=== PATIENT | male | born 1990 | race Two or more races ===

== ENCOUNTER 2022-06-28 11:37 | Emergency (ER) | payer OTHER, SELFPAY ==
--- NOTE | ~2022-06-28 | XR_ITS ---
EXAMINATION: XR CHEST CLINICAL INFORMATION: Chest pain COMPARISON: None TECHNIQUE: 2 views of the chest were obtained. FINDINGS: No significant abnormality is noted involving the heart, lungs, mediastinum, bony thorax or soft tissues. XR/XR chest 2V IMPRESSION: No acute disease.
[2022-06-28 12:07] VITALS: PULSE 81; RESP 18; TEMP 36.8; O2SAT 98; BMI 34.0
--- NOTE | 2022-06-28 12:08 | ED.CHESTPAIN ---
HPI - Chest Pain General Chief Complaint: Chest Pain <Silvia Alfredo NP - Last Filed: 06/28/22 12:11> Stated Complaint: CP, sob, HBP <Silvia Alfredo NP - Last Filed: 06/28/22 12:11> Time Seen by Provider: 06/28/22 13:48 <Silvia Alfredo NP - Last Filed: 06/28/22 12:11> Source: patient and family <Shanel Kelley NP - Last Filed: 06/28/22 15:36> Mode of arrival: ambulatory <Shanel Kelley NP - Last Filed: 06/28/22 15:36> Limitations: no limitations <Shanel Kelley NP - Last Filed: 06/28/22 15:36> History of Present Illness HPI narrative: 31-year-old male patient with no significant past medical history presents to the emergency department today with complaints of chest pain, shortness breath, and dizziness that started yesterday around 6:00 p.m. after playing with his children. He states symptoms began suddenly with a tightness and throbbing sensation in his left chest. He denies any sensation of pain into his left arm or jaw. He denies any abdominal pain, diarrhea, constipation, fever, chills, headache, changes in vision. He denies any recent illness or known sick contacts. <Shanel Kelley NP - Last Filed: 06/28/22 15:36> MD complaint: chest pain <Shanel Kelley NP - Last Filed: 06/28/22 15:36> Onset (ago): day(s) (1) <Shanel Kelley NP - Last Filed: 06/28/22 15:36> Timing of current episode: constant <Shanel Kelley NP - Last Filed: 06/28/22 15:36> Prior episodes: No <Shanel Kelley NP - Last Filed: 06/28/22 15:36> Onset: during exertion <Shanel Kelley NP - Last Filed: 06/28/22 15:36> Pain location: left chest <Shanel Kelley NP - Last Filed: 06/28/22 15:36> Pain radiation: none <Shanel Kelley NP - Last Filed: 06/28/22 15:36> Severity: mild <Shanel Kelley NP - Last Filed: 06/28/22 15:36> Quality: tightness <Shanel Kelley NP - Last Filed: 06/28/22 15:36> Relieving factors: nothing <Shanel Kelley NP - Last Filed: 06/28/22 15:36> Exacerbating factors: exertion <Shanel Kelley NP - Last Filed: 06/28/22 15:36> Treatment prior to arrival: none <Shanel Kelley NP - Last Filed: 06/28/22 15:36> Risk Factors Coronary artery disease risk factors: none <Shanel Kelley NP - Last Filed: 06/28/22 15:36> Thoracic aortic dissection risk factors: none <Shanel Kelley NP - Last Filed: 06/28/22 15:36> Related Data Home Medications: Previous Rx's Medication Instructions Recorded albuterol sulfate 90 mcg/actuation 2 inh inhalation Q6H PRN shortness 06/28/22 breath activated powder of breath #1 ea inhaler,sensor prednisone 20 mg tablet 40 mg PO DAILY #5 tabs 06/28/22 <Silvia Alfredo NP - Last Filed: 06/28/22 12:11> Allergies/Adverse Reactions: Allergies Allergy/AdvReac Type Severity Reaction Status Date / Time No Known Allergies Allergy Unverified 03/17/20 16:09 <Silvia Alfredo NP - Last Filed: 06/28/22 12:11> Review of Systems Review of Systems: In addition to documented HPI above, the additional ROS was obtained: Constitutional: No Weight loss, No Fever, No Chills ENT/Mouth: No Ear Pain, No Nasal Congestion, No Sinus Pain, No Hoarseness, No sore throat, No Rhinorrhea, No Swallowing Difficulty Cardiovascular: per HPI Respiratory: No Cough, No Sputum, No Wheezing Gastrointestinal: No Nausea, No Vomiting, No Diarrhea, No Constipation, No Abdominal pain Genitourinary: No Dysuria, No Urinary Frequency, No Hematuria, No Urinary Incontinence/retention, No Urgency, No Flank Pain Musculoskeletal: No joint pain, No Myalgias, No Joint Swelling Skin: No Skin Lesions, No rash Neuro: No Weakness, No Numbness, No Paresthesias <Shanel Kelley NP - Last Filed: 06/28/22 15:36> Yes all other systems are reviewed and are negative <Shanel Kelley NP - Last Filed: 06/28/22 15:36> [facility] Social History Social History: Social History Advance Directives: No Advance Directives Information Provided: Yes <Silvia Alfredo NP - Last Filed: 06/28/22 12:11> Physical Exam Vital Signs: Vital Signs: Last Vital Signs Temp 98.2 F 06/28/22 12:07 Pulse 65 06/28/22 14:34 Resp 15 06/28/22 14:34 Pulse Ox 98 06/28/22 12:07 O2 Del Method 06/28/22 12:07 BMI result Body Mass Index 34.0 <Silvia Alfredo NP - Last Filed: 06/28/22 12:11> Vital Signs: Last Vital Signs Temp 98.2 F 06/28/22 12:07 Pulse 65 06/28/22 14:34 Resp 15 06/28/22 14:34 Pulse Ox 98 06/28/22 12:07 O2 Del Method 06/28/22 12:07 BMI result Body Mass Index 34.0 <Shanel Kelley NP - Last Filed: 06/28/22 15:36> Course Course Course Narrative: This is rapid medical exam. Deferred additional HPI, ROS, PE to primary provider. 31 yo male healthy here with complaints of chest pain, shortness of breath, dizziness since 6pm yesterday. Patient went to [facility] but was not seen by provider due to the long wait. Here with continued symptoms. Will check EKG, CXR, labs, viral testing. VSS. <Silvia Alfredo NP - Last Filed: 06/28/22 12:11> This is rapid medical exam. Deferred additional HPI, ROS, PE to primary provider. 31 yo male healthy here with complaints of chest pain, shortness of breath, dizziness since 6pm yesterday. Patient went to [facility] but was not seen by provider due to the long wait. Here with continued symptoms. Will check EKG, CXR, labs, viral testing. VSS. 1415: Blood work unremarkable. Troponin negative. CXR negative. EKG NSR. LS diminished. Albuterol neb treatment ordered. 1515: Pt reports ease in breathing. LS improved <Shanel Kelley NP - Last Filed: 06/28/22 15:36> Medications Administered Discontinued Medications Generic Name Dose Route Start Last Admin Trade Name Freq PRN Reason Stop Dose Admin Albuterol Sulfate 2.5 mg/ 5 mg 06/28/22 14:12 06/28/22 14:30 Albuterol Sulfate 2.5 mg INHALE 06/28/22 14:13 5 mg ONCE ONE Administration <Silvia Alfredo FACE HARDENER - Last Filed: 06/28/22 12:11> Medications Administered Discontinued Medications Generic Name Dose Route Start Last Admin Trade Name Freq PRN Reason Stop Dose Admin Albuterol Sulfate 2.5 mg/ 5 mg 06/28/22 14:12 06/28/22 14:30 Albuterol Sulfate 2.5 mg INHALE 06/28/22 14:13 5 mg ONCE ONE Administration <Shanel Kelley NP - Last Filed: 06/28/22 15:36> Medical Decision Making Medical Decision Making MDM Narrative: 31-year-old male patient with no significant past medical history presents to the emergency department today with complaints of chest pain, shortness breath, and dizziness that started yesterday around 6:00 p.m. after playing with his children. He states symptoms began suddenly with a tightness and throbbing sensation in his left chest. Blood work unremarkable. Chest xray negative for infection. Albuterol nebulizer treatment given with improvement in lung sounds. On repeat exam patient states he had been working with ammonia yesterday in believes he may have breathed in the chemical while at work. He denies wearing any type of mask a respirator over working with chemicals. Plan to discharge patient home with Education on chemical exposure and lung function. Albuterol inhaler and short course of prednisone ordered. HPI, PE, diagnostic, and plan discussed with patient and family, to questions at this time. Educated to return to the emergency department with worsening shortness of breath, chest pain, worsening headache, changes in vision, or any other concerning emergent symptoms. Recommended follow-up with his primary care provider for further treatment and management. <Shanel Kelley NP - Last Filed: 06/28/22 15:36> Lab Data Result Diagrams: : 06/28/22 12:43 06/28/22 12:43 <Silvia Alfredo NP - Last Filed: 06/28/22 12:11> Labs: Lab Results 06/28/22 06/28/22 06/28/22 Range/Units 12:43 12:43 12:43 WBC 10.6 (4.8-10.8) X10*3/uL RBC 4.97 (4.60-5.80) X10*6/uL Hgb 12.9 L (14.0-18.0) g/dl Hct 40.5 L (42.0-52.0) % MCV 81.5 (80.0-98.0) fL MCH 26.0 L (27.0-33.0) pg MCHC 31.9 (31.0-36.0) g/dl RDW 14.2 (11.0-16.0) % Plt Count 382 (160-400) X10*3/uL MPV 10.5 (9.4-12.4) fL Immature Gran % (Auto) 0.2 (0.0-0.4) % Neut % (Auto) 63.7 (45-73) % Lymph % (Auto) 25.3 (20-40) % Craig % (Auto) 7.5 (2-11) % Eos % (Auto) 2.9 (0-4) % Baso % (Auto) 0.4 (0-2) % Lymph # (Auto) 2.7 (1.2-4.9) X10*3/uL Craig # (Auto) 0.8 (0.1-1.2) X10*3/uL Eos # (Auto) 0.3 (0.0-0.4) X10*3/uL Baso # (Auto) 0.0 (0.0-0.2) X10*3/uL Abs Immat Gran (auto) 0.02 (0.00-0.03) X10*3/uL Absolute Neuts (auto) 6.8 (2.0-8.3) x10*3/uL Absolute Nucleated RBC 0.000 (0.0-0.012) X10*3/uL Nucleated RBC % (auto) 0.0 (0.0-0.2) /100WBC Sodium 141 (135-145) mmol/L Potassium 4.8 (3.3-5.1) mmol/L Chloride 106 (96-108) mmol/L Carbon Dioxide 28 (22-29) mmol/L Anion Gap 12 (12-20) BUN 11 (9-16) mg/dL Creatinine 0.84 (0.5-1.4) mg/dL Estim Creat Clear Calc 164.1 Estimated GFR > 60 Random Glucose 93 (60-115) mg/dL Calcium 9.5 (8.4-10.2) mg/dL Total Bilirubin 0.3 (0.0-1.0) mg/dL Direct Bilirubin < 0.2 (0.0-0.5) mg/dL AST 21 (5-37) U/L ALT 25 (0-40) U/L Alkaline Phosphatase 60 (39-117) U/L Troponin I High Sens (<3.5-35.0) ng/L Total Protein 7.4 (6.5-8.0) g/dL Albumin 4.2 (3.5-5.0) g/dL Influenza Type A (PCR) NEGATIVE (Negative) Influenza Type B (PCR) NEGATIVE (Negative) RSV RNA Qual (PCR) NEGATIVE (Negative) SARS-CoV-2 RNA (RT-PCR) NEGATIVE (Negative) 06/28/22 Range/Units 12:43 WBC (4.8-10.8) X10*3/uL RBC (4.60-5.80) X10*6/uL Hgb (14.0-18.0) g/dl Hct (42.0-52.0) % MCV (80.0-98.0) fL MCH (27.0-33.0) pg MCHC (31.0-36.0) g/dl RDW (11.0-16.0) % Plt Count (160-400) X10*3/uL MPV (9.4-12.4) fL Immature Gran % (Auto) (0.0-0.4) % Neut % (Auto) (45-73) % Lymph % (Auto) (20-40) % Craig % (Auto) (2-11) % Eos % (Auto) (0-4) % Baso % (Auto) (0-2) % Lymph # (Auto) (1.2-4.9) X10*3/uL Craig # (Auto) (0.1-1.2) X10*3/uL Eos # (Auto) (0.0-0.4) X10*3/uL Baso # (Auto) (0.0-0.2) X10*3/uL Abs Immat Gran (auto) (0.00-0.03) X10*3/uL Absolute Neuts (auto) (2.0-8.3) x10*3/uL Absolute Nucleated RBC (0.0-0.012) X10*3/uL Nucleated RBC % (auto) (0.0-0.2) /100WBC Sodium (135-145) mmol/L Potassium (3.3-5.1) mmol/L Chloride (96-108) mmol/L Carbon Dioxide (22-29) mmol/L Anion Gap (12-20) BUN (9-16) mg/dL Creatinine (0.5-1.4) mg/dL Estim Creat Clear Calc Estimated GFR Random Glucose (60-115) mg/dL Calcium (8.4-10.2) mg/dL Total Bilirubin (0.0-1.0) mg/dL Direct Bilirubin (0.0-0.5) mg/dL AST (5-37) U/L ALT (0-40) U/L Alkaline Phosphatase (39-117) U/L Troponin I High Sens < 3.5 (<3.5-35.0) ng/L Total Protein (6.5-8.0) g/dL Albumin (3.5-5.0) g/dL Influenza Type A (PCR) (Negative) Influenza Type B (PCR) (Negative) RSV RNA Qual (PCR) (Negative) SARS-CoV-2 RNA (RT-PCR) (Negative) <Silvia Alfredo NP - Last Filed: 06/28/22 12:11> Lab Results 06/28/22 06/28/22 06/28/22 Range/Units 12:43 12:43 12:43 WBC 10.6 (4.8-10.8) X10*3/uL RBC 4.97 (4.60-5.80) X10*6/uL Hgb 12.9 L (14.0-18.0) g/dl Hct 40.5 L (42.0-52.0) % MCV 81.5 (80.0-98.0) fL MCH 26.0 L (27.0-33.0) pg MCHC 31.9 (31.0-36.0) g/dl RDW 14.2 (11.0-16.0) % Plt Count 382 (160-400) X10*3/uL MPV 10.5 (9.4-12.4) fL Immature Gran % (Auto) 0.2 (0.0-0.4) % Neut % (Auto) 63.7 (45-73) % Lymph % (Auto) 25.3 (20-40) % Craig % (Auto) 7.5 (2-11) % Eos % (Auto) 2.9 (0-4) % Baso % (Auto) 0.4 (0-2) % Lymph # (Auto) 2.7 (1.2-4.9) X10*3/uL Craig # (Auto) 0.8 (0.1-1.2) X10*3/uL Eos # (Auto) 0.3 (0.0-0.4) X10*3/uL Baso # (Auto) 0.0 (0.0-0.2) X10*3/uL Abs Immat Gran (auto) 0.02 (0.00-0.03) X10*3/uL Absolute Neuts (auto) 6.8 (2.0-8.3) x10*3/uL Absolute Nucleated RBC 0.000 (0.0-0.012) X10*3/uL Nucleated RBC % (auto) 0.0 (0.0-0.2) /100WBC Sodium 141 (135-145) mmol/L Potassium 4.8 (3.3-5.1) mmol/L Chloride 106 (96-108) mmol/L Carbon Dioxide 28 (22-29) mmol/L Anion Gap 12 (12-20) BUN 11 (9-16) mg/dL Creatinine 0.84 (0.5-1.4) mg/dL Estim Creat Clear Calc 164.1 Estimated GFR > 60 Random Glucose 93 (60-115) mg/dL Calcium 9.5 (8.4-10.2) mg/dL Total Bilirubin 0.3 (0.0-1.0) mg/dL Direct Bilirubin < 0.2 (0.0-0.5) mg/dL AST 21 (5-37) U/L ALT 25 (0-40) U/L Alkaline Phosphatase 60 (39-117) U/L Troponin I High Sens (<3.5-35.0) ng/L Total Protein 7.4 (6.5-8.0) g/dL Albumin 4.2 (3.5-5.0) g/dL Influenza Type A (PCR) NEGATIVE (Negative) Influenza Type B (PCR) NEGATIVE (Negative) RSV RNA Qual (PCR) NEGATIVE (Negative) SARS-CoV-2 RNA (RT-PCR) NEGATIVE (Negative) 06/28/22 Range/Units 12:43 WBC (4.8-10.8) X10*3/uL RBC (4.60-5.80) X10*6/uL Hgb (14.0-18.0) g/dl Hct (42.0-52.0) % MCV (80.0-98.0) fL MCH (27.0-33.0) pg MCHC (31.0-36.0) g/dl RDW (11.0-16.0) % Plt Count (160-400) X10*3/uL MPV (9.4-12.4) fL Immature Gran % (Auto) (0.0-0.4) % Neut % (Auto) (45-73) % Lymph % (Auto) (20-40) % Craig % (Auto) (2-11) % Eos % (Auto) (0-4) % Baso % (Auto) (0-2) % Lymph # (Auto) (1.2-4.9) X10*3/uL Craig # (Auto) (0.1-1.2) X10*3/uL Eos # (Auto) (0.0-0.4) X10*3/uL Baso # (Auto) (0.0-0.2) X10*3/uL Abs Immat Gran (auto) (0.00-0.03) X10*3/uL Absolute Neuts (auto) (2.0-8.3) x10*3/uL Absolute Nucleated RBC (0.0-0.012) X10*3/uL Nucleated RBC % (auto) (0.0-0.2) /100WBC Sodium (135-145) mmol/L Potassium (3.3-5.1) mmol/L Chloride (96-108) mmol/L Carbon Dioxide (22-29) mmol/L Anion Gap (12-20) BUN (9-16) mg/dL Creatinine (0.5-1.4) mg/dL Estim Creat Clear Calc Estimated GFR Random Glucose (60-115) mg/dL Calcium (8.4-10.2) mg/dL Total Bilirubin (0.0-1.0) mg/dL Direct Bilirubin (0.0-0.5) mg/dL AST (5-37) U/L ALT (0-40) U/L Alkaline Phosphatase (39-117) U/L Troponin I High Sens < 3.5 (<3.5-35.0) ng/L Total Protein (6.5-8.0) g/dL Albumin (3.5-5.0) g/dL Influenza Type A (PCR) (Negative) Influenza Type B (PCR) (Negative) RSV RNA Qual (PCR) (Negative) SARS-CoV-2 RNA (RT-PCR) (Negative) <Shanel Kelley NP - Last Filed: 06/28/22 15:36> Discharge Plan Discharge Clinical Impression: Reactive airway disease <Silvia Alfredo NP - Last Filed: 06/28/22 12:11> Patient Disposition: Home, Self-Care <Silvia Alfredo NP - Last Filed: 06/28/22 12:11> Instructions: Asthma (ED), How to Use a Metered-Dose Inhaler (ED), How Your Lungs Work (ED) <Silvia Alfredo NP - Last Filed: 06/28/22 12:11> Prescriptions: New prednisone 20 mg tablet 40 mg PO DAILY Qty: 5 0RF albuterol sulfate 90 mcg/actuation aero powdr breath act w/sensor 2 inh inhalation Q6H PRN (Reason: shortness of breath) Qty: 1 0RF <Silvia Alfredo NP - Last Filed: 06/28/22 12:11> Referrals: [facility] Family Medicine [Provider Group] [facility] Primary Care, Cheryl [Provider Group] [facility] Primary Care,Caroline [Provider Group] <Silvia Alfredo NP - Last Filed: 06/28/22 12:11> Stand Alone Forms: Work/School Release <Silvia Alfredo NP - Last Filed: 06/28/22 12:11> Print Language: Marshallese <Silvia Alfredo NP - Last Filed: 06/28/22 12:11>
--- NOTE | 2022-06-28 12:09 | ECG_ITS ---
Test Reason : cp Blood Pressure : / mmHG Vent. Rate : 074 BPM Atrial Rate : 074 BPM P-R Int : 134 ms QRS Dur : 098 ms QT Int : 376 ms P-R-T Axes : 033 039 020 degrees QTc Int : 417 ms Normal sinus rhythm Normal ECG No previous ECGs available Referred By: Silvia Alfredo Electronically Signed By:JEET BACK MD
[2022-06-28 12:48] LABS: MANUAL DIFF FLAG NO
[2022-06-28 12:49] LABS: Basophils Percent Auto 0.4 % (0-2); Eosinophils Absolute Auto 0.3 X10*3/uL (0.0-0.4); Eosinophils Percent Auto 2.9 % (0-4); Hematocrit 40.5 % (42.0-52.0); Hemoglobin 12.9 g/dl (14.0-18.0); Imm Gran Abs Auto 0.02 X10*3/uL (0.00-0.03); Imm Gran Pct Auto 0.2 % (0.0-0.4); Lymphocytes Absolute Auto 2.7 X10*3/uL (1.2-4.9); Lymphocytes Percent Auto 25.3 % (20-40); Mean Corpuscular HGB Conc 31.9 g/dl (31.0-36.0); Mean Corpuscular Volume 81.5 fL (80.0-98.0); Mean Platelet Volume 10.5 fL (9.4-12.4); Monocytes Absolute Auto 0.8 X10*3/uL (0.1-1.2); Monocytes Percent Auto 7.5 % (2-11); Neutrophils Absolute Auto 6.8 x10*3/uL (2.0-8.3); Neutrophils Percent Auto 63.7 % (45-73); Platelet Count 382 X10*3/uL (160-400); Red Blood Count 4.97 X10*6/uL (4.60-5.80); Red Cell Distribution Width 14.2 % (11.0-16.0); White Blood Count 10.6 X10*3/uL (4.8-10.8)
[2022-06-28 13:17] LABS: Potassium 4.8 mmol/L (3.3-5.1)
[2022-06-28 13:19] LABS: Alanine Aminotransferase 25 U/L (0-40); Albumin Level 4.2 g/dL (3.5-5.0); Alkaline Phosphatase 60 U/L (39-117); Anion Gap 12 (12-20); Aspartate Amino Transferase 21 U/L (5-37); Bilirubin Direct < 0.2 mg/dL (0.0-0.5); Bilirubin Total 0.3 mg/dL (0.0-1.0); Blood Urea Nitrogen 11 mg/dL (9-16); Calcium 9.5 mg/dL (8.4-10.2); Carbon Dioxide 28 mmol/L (22-29); Chloride 106 mmol/L (96-108); Creatinine Clr Calc Pharmacy 164.1; Estimated Glomerular Filt Rate > 60; Glucose Random 93 mg/dL (60-115); Sodium 141 mmol/L (135-145); Total Protein 7.4 g/dL (6.5-8.0)
[2022-06-28 13:26] LABS: Troponin-I High Sensitivity < 3.5 ng/L (<3.5-35.0)
[2022-06-28 13:31] LABS: Influenza A PCR NEGATIVE (Negative); Influenza B PCR NEGATIVE (Negative); Resp Syncy Virus RNA Qual PCR NEGATIVE (Negative); SARS COV2 PCR INHOUSE NEGATIVE (Negative)
[2022-06-28] MEDS: Albuterol Sulfate 2.5 MG, Albuterol Sulfate (0.083%) 2.5 MG 5 MG INHALE (14:30)
[2022-06-28 14:34] VITALS: PULSE 65; RESP 15; O2SAT 100
[2022-06-28 15:50] VITALS: BP 154/101; PULSE 84; RESP 19; TEMP 36.8; O2SAT 99
[2022-06-28 16:18] VITALS: BP 149/101
--- NOTE | 2023-07-11 13:57 | ED_ITS ---
HPI - Chest Pain General Chief Complaint: Chest Pain Stated Complaint: CP, sob, HBP Time Seen by Provider: 06/28/22 13:48 Source: patient and family Mode of arrival: ambulatory Limitations: no limitations History of Present Illness HPI narrative: 12 hour history of chest pain and shortness of breath with known sick contacts. Denies fever, chills, RODRIGUEZ, n/v/d. Pain location: left chest Quality: tightness Relieving factors: nothing Exacerbating factors: exertion Related Data Previous Rx's Medication Instructions Recorded albuterol sulfate 90 mcg/actuation 2 inh inhalation Q6H PRN shortness 06/28/22 breath activated powder of breath #1 ea inhaler,sensor prednisone 20 mg tablet 40 mg (2 x 20 mg) PO DAILY #5 tabs 06/28/22 Allergies Allergy/AdvReac Type Severity Reaction Status Date / Time No Known Allergies Allergy Unverified 03/17/20 16:09 Review of Systems 2 Review of Systems: Yes all other systems are reviewed and are negative PMFSH Social History Social History Advance Directives: No Advance Directives Information Provided: Yes Physical Exam 2 Vital Signs: Vital Signs: Last Vital Signs Temp 98.2 F 06/28/22 15:50 Pulse 84 06/28/22 15:50 Resp 19 06/28/22 15:50 BP 149/101 H 06/28/22 16:18 Pulse Ox 99 06/28/22 15:50 O2 Del Method Room Air 06/28/22 15:50 BMI result Body Mass Index 34.0 Const: General: cooperative, no acute distress, alert and awake Nutritional Appearance: well nourished Orientation/consciousness: patient oriented x3 Limitations: no limitations HEENT: Head: Yes normal to inspection and Yes atraumatic Ears: hearing grossly normal bilaterally and external ears normal General nose exam: Normal external nose present Face and sinus: Yes normal facial exam Mouth: Normal oral and palatal mucosa present Eyes: General: appearance normal, both eyes and all related structures A lignment and Position: alignment normal Periorbital: periorbital findings normal Eyelids: Yes eyelids normal Conjunctivae: conjunctivae normal S clerae: sclerae normal Pupils: Equal, round and reactive pupils present E OM: EOMs intact bilaterally Neck: Neck: Yes normal visual inspection and Yes full ROM Chest: Chest palpation & inspection: normal inspection of the chest Resp: Effort & Inspection: normal respiratory effort and able to speak in complete sentences Auscultation: clear to auscultation bilaterally Cardio: Rate: regular rate Rhythm: regular rhythm GI: Palpation (GI): Soft to palpation, not firm, nontender, no guarding and not rigid Auscultation: normal bowel sounds Skin: General skin exam: no rashes or lesions noted Neuro: General: patient oriented x3 Cranial nerves: Yes Equal, round and reactive pupils present Cognition (Neuro): normal cognition Gait exam (Neuro): Normal gait present Motor exam (neuro): 5/5 motor strength present throughout Sensory Exam: Normal double simultaneous stimulation for sensation Extrem: General: Yes normal to inspection, Yes full ROM and Yes capillary refill normal Psych: Appearance: grossly normal Mental Status: mental status grossly normal Speech and movement: Normal speech and movement present Affect: n ormal affect Attitude: cooperative Thought process: Normal thought process present Thought content: Normal thought content present Insight: Good insight present (Psych) Judgement: Good judgement present (Psych) Medications Administered Discontinued Medications Generic Name Dose Route Start Last Admin Trade Name Kongq PRN Reason Stop Dose Admin Albuterol Sulfate 2.5 mg/ 5 mg 06/28/22 14:12 06/28/22 14:30 Albuterol Sulfate 2.5 mg INHALE 06/28/22 14:13 5 mg ONCE ONE Administration Medical Decision Making Lab Data 06/28/22 12:43 06/28/22 12:43 Labs: Lab Results 06/28/22 Range/Units 12:43 WBC 10.6 (4.8-10.8) X10*3/uL RBC 4.97 (4.60-5.80) X10*6/uL Hgb 12.9 L (14.0-18.0) g/dl Hct 40.5 L (42.0-52.0) % MCV 81.5 (80.0-98.0) fL MCH 26.0 L (27.0-33.0) pg MCHC 31.9 (31.0-36.0) g/dl RDW 14.2 (11.0-16.0) % Plt Count 382 (160-400) X10*3/uL MPV 10.5 (9.4-12.4) fL Immature Gran % (Auto) 0.2 (0.0-0.4) % Neut % (Auto) 63.7 (45-73) % Lymph % (Auto) 25.3 (20-40) % Arthur % (Auto) 7.5 (2-11) % Eos % (Auto) 2.9 (0-4) % Baso % (Auto) 0.4 (0-2) % Lymph # (Auto) 2.7 (1.2-4.9) X10*3/uL Arthur # (Auto) 0.8 (0.1-1.2) X10*3/uL Eos # (Auto) 0.3 (0.0-0.4) X10*3/uL Baso # (Auto) 0.0 (0.0-0.2) X10*3/uL Abs Immat Gran (auto) 0.02 (0.00-0.03) X10*3/uL Absolute Neuts (auto) 6.8 (2.0-8.3) x10*3/uL Absolute Nucleated RBC 0.000 (0.0-0.012) X10*3/uL Nucleated RBC % (auto) 0.0 (0.0-0.2) /100WBC Sodium 141 (135-145) mmol/L Potassium 4.8 (3.3-5.1) mmol/L Chloride 106 (96-108) mmol/L Carbon Dioxide 28 (22-29) mmol/L Anion Gap 12 (12-20) BUN 11 (9-16) mg/dL Creatinine 0.84 (0.5-1.4) mg/dL Estim Creat Clear Calc 164.1 Estimated GFR > 60 Random Glucose 93 (60-115) mg/dL Calcium 9.5 (8.4-10.2) mg/dL Total Bilirubin 0.3 (0.0-1.0) mg/dL Direct Bilirubin < 0.2 (0.0-0.5) mg/dL AST 21 (5-37) U/L ALT 25 (0-40) U/L Alkaline Phosphatase 60 (39-117) U/L Troponin I High Sens < 3.5 (<3.5-35.0) ng/L Total Protein 7.4 (6.5-8.0) g/dL Albumin 4.2 (3.5-5.0) g/dL Influenza Type A (PCR) NEGATIVE (Negative) Influenza Type B (PCR) NEGATIVE (Negative) RSV RNA Qual (PCR) NEGATIVE (Negative) SARS-CoV-2 RNA (RT-PCR) NEGATIVE (Negative) Discharge Plan Discharge Clinical Impression: Reactive airway disease Patient Disposition: Home, Self-Care Instructions: Asthma (ED), How to Use a Metered-Dose Inhaler (ED), How Your Lungs Work (ED) Prescriptions: New prednisone 20 mg tablet 40 mg PO DAILY Qty: 5 0RF albuterol sulfate 90 mcg/actuation aero powdr breath act w/sensor 2 inh inhalation Q6H PRN (Reason: shortness of breath) Qty: 1 0RF Referrals: [facility] Family Medicine [Provider Group] [facility] Primary CareCheryl [Provider Group] [facility] Primary CareCaroline [Provider Group] Stand Alone Forms: Work/School Release Interventions: ED Discharge Assessment Last Done: 06/28/22 17:05 Discharge Date/Time: 06/28/22 17:05 Print Language: Paraguayan
== END 2022-06-28 17:05 | disposition home or self-care (01) ==
PROVIDERS: Nurse Practitioner Family; Emergency Provider Student in an Organized Health Care Education/Training Program
DX: J45.909 Unspecified asthma, uncomplicated (principal); I10 Essential (primary) hypertension; E66.9 Obesity, unspecified; Z68.34 Body mass index [BMI] 34.0-34.9, adult; Z71.3 Dietary counseling and surveillance; Z20.828 Contact with and (suspected) exposure to other viral communicable diseases
CPT/HCPCS: 0241U; 36415; 71046; 80048; 80076; 84484; 85025; 93005; 94640; 99284